=== PATIENT | male | born 1990 | race Caucasian/White ===

== ENCOUNTER 2019-06-12 10:51 | Outpatient (CLI) | payer BC ==
--- NOTE | 2019-06-12 13:23 | RAD ---
LEFT RIBS: 06/12/19 Three views. HISTORY: Contusion to thorax. No evidence of fracture. Left lung appears clear. No rib lesion identified. IMPRESSION: No evidence of acute fracture. POS: OFF
== END 2019-06-12 10:52 | disposition home or self-care (01) ==
LOC: BICRAD 10:51
PROVIDERS: ATTEND Family Medicine
DX: S20.20XA Contusion of thorax, unspecified, initial encounter (principal)

== ENCOUNTER 2024-07-25 09:24 | Outpatient (CLI) | payer BC | END 2024-07-25 09:25 | disposition home or self-care (01) | LOC: BICRAD 09:24 | PROVIDERS: ATTEND Family Medicine | DX: R05.3 Chronic cough (principal) | CPT/HCPCS: 71046 ==